=== PATIENT | male | born 1980 | race Caucasian/White ===

== ENCOUNTER 2022-08-18 10:01 | Emergency (ER) | payer BC, SELFPAY ==
--- NOTE | 2022-08-18 10:02 | ED.URI ---
HPI - URI/Sore Throat General Chief Complaint: Upper Respiratory Infection Stated Complaint: Sore Throat Time Seen by Provider: 08/18/22 10:02 Source: patient Mode of arrival: ambulatory Limitations: no limitations History of Present Illness HPI Narrative: Aden is a 42-year-old male patient presenting to clinic today with complaints of sore throat, sinus congestion, headache, green nasal drainage, He reports symptoms have been going on for over 1 week. He denies any known fever or chills. MD elicited complaint: sore throat and nasal congestion Related Data Home Medications Medication Instructions Recorded Confirmed venlafaxine 75 mg capsule,extended 75 mg PO DAILY 08/18/22 08/18/22 release 24 hr Allergies Allergy/AdvReac Type Severity Reaction Status Date / Time amoxicillin [From Augmentin] Allergy Rash Verified 08/18/22 10:13 clavulanic acid Allergy Rash Verified 08/18/22 10:13 [From Augmentin] Review of Systems Review of Systems: Pertinent positives per HPI. Patient denies any fever, chills, rash, headache, visual changes, dizziness, shortness of breath, chest pain, palpitations, nausea, vomiting, diarrhea, constipation, abdominal pain, or any urinary issues. PMFSH Comments At the time of my signature, I reviewed and agree with the nursing past medical, surgical, social, and family history. There is no relevant family history pertinent to the patient complaint. Exam Narrative: General: Well-developed, well nourished, in no apparent distress Head: Normocephalic, atraumatic Eyes: Pupils equally round and reactive to light bilaterally, EOM intact, sclera and conjunctive clear, no discharge, lids normal Ears: TMs intact and clear, ear canals clear, no drainage, grossly hearing normal. Nose: Nares patent, green nasal discharge, moderate to severe inflammation, ethmoid and maxillary sinus tenderness. Mouth: Oral pharynx without lesions or masses, good dentition, MMM. oropharynx red with tonsillar swelling Neck: Supple, trachea midline, mild enlargement of anterior cervical nodes, no thyroid masses or goiter palpable. Cardio: Regular rate and rhythm, s1 and s2 normal, no murmur appreciated. Resp: Clear to auscultation bilaterally, no rhonchi, rales, wheezing or rubs Course Course Emergency Course: Portions of this record may have been created with voice recognition software. Level of Care: Express Care Visit Vital Signs Vital signs: Vital Signs Temperature 36.8 C 08/18/22 10:07 Pulse Rate 84 08/18/22 10:07 Respiratory Rate 16 08/18/22 10:07 Blood Pressure 141/87 H 08/18/22 10:07 Pulse Oximetry 99 08/18/22 10:07 Oxygen Delivery Room Air 08/18/22 10:07 Temperature 36.8 C 08/18/22 10:07 Pulse Rate 84 08/18/22 10:07 Respiratory Rate 16 08/18/22 10:07 Blood Pressure 141/87 H 08/18/22 10:07 Pulse Oximetry 99 08/18/22 10:07 Oxygen Delivery Room Air 08/18/22 10:07 Vital signs reviewed MDM - URI/Sore Throat MDM Narrative Medical decision making narrative: At the time of visit patient is resting comfortably on the exam table. Patient has had a rash/ itching from Augmentin approximately 20 years ago. Discussed potential risk of allergy to cefdinir and patient was briefed on this and he voiced understanding and agrees to the treatment plan. Will place him on cefdinir prednisone. Supportive measures were discussed with the patient and he voiced understanding of discharge instructions and agrees to treatment plan. Differential Diagnosis Differential diagnosis: Likely upper respiratory infection, otitis media, sinusitis, viral infection, bronchitis, influenza, pharyngitis and other ( COVID) Discharge Plan Discharge Clinical Impression: Acute bacterial rhinosinusitis, Pharyngitis Patient Disposition: Home, Self-Care Condition: Stable Instructions: Antibiotic Form, Pharyngitis (ED), Rhinosinusitis (ED) Additional Instructions: Take prescr
[2022-08-18 10:07] VITALS: BP 141/87; PULSE 84; RESP 16; TEMP 36.8; O2SAT 99
== END 2022-08-18 10:24 | disposition home or self-care (01) ==
LOC: EXPBETH 10:05
PROVIDERS: Emergency Provider Nurse Practitioner Family; PCP Family Medicine
DX: J01.90 Acute sinusitis, unspecified (principal); J02.9 Acute pharyngitis, unspecified; K21.9 Gastro-esophageal reflux disease without esophagitis
CPT/HCPCS: 99213; G0463

== ENCOUNTER 2022-08-24 12:20 | Emergency (ER) | payer BC, SELFPAY ==
--- NOTE | 2022-08-24 12:23 | ED.URI ---
HPI - URI/Sore Throat General Chief Complaint: Upper Respiratory Infection Stated Complaint: sore throat Time Seen by Provider: 08/24/22 12:23 Source: patient and RN notes reviewed History of Present Illness HPI Narrative: patient is a 42-year-old male who presents to urgent care with complaints of continual sore throat and postnasal drainage. Patient was seen on August 18 and given cefdinir and prednisone at our facility. Patient states the sinus pressure has relieved with a sore throat postnasal drainage is still present. Patient completed the steroid and is still taking the cefdinir. He has not taken anything [id number] for his symptoms. No other acute complaints. No acute distress noted. Patient aware of the plan of care. Some parts of this dictation were generated by voice recognition software and may contain typographical and/or grammatical inaccuracies. Related Data Home Medications Medication Instructions Recorded Confirmed venlafaxine 75 mg capsule,extended 75 mg PO DAILY 08/18/22 08/18/22 release 24 hr Allergies Allergy/AdvReac Type Severity Reaction Status Date / Time amoxicillin [From Augmentin] Allergy Rash Verified 08/18/22 10:13 clavulanic acid Allergy Rash Verified 08/18/22 10:13 [From Augmentin] Review of Systems Review of Systems: CONSTITUTIONAL: Denies fever, chills, or sweats. EYES: Denies visual changes, redness, or discharge. ENT: Reports of sore throat postnasal drainage CARDIOVASCULAR: Denies chest pain, palpitations, or edema. RESPIRATORY: Denies cough or dyspnea. GASTROINTESTINAL: Denies abdominal pain, nausea, vomiting, or diarrhea. GENITOURINARY: Denies dysuria or hematuria. SKIN: Denies rash or itching. MUSCULOSKELETAL: Denies back pain, joint pain, or myalgia. NEUROLOGIC: Denies headache, numbness, or weakness. All other systems reviewed are negative, except as documented in HPI. PMFSH Comments At the time of my signature, I reviewed and agree with the nursing past medical, surgical, social, and family history. There is no relevant family history pertinent to the patient complaint. Exam Narrative: GENERAL: This is a well-nourished, well-developed patient, in no apparent distress. HEAD: normocephalic, atraumatic. EYES: PERRL. Sclera clear/white. Vision is grossly intact. EARS: External ears normal, auditory canals clear and without drainage, TMs normal without perforation. Hearing grossly intact. NOSE: External nose normal with no obvious nasal discharge, nares without redness, no rhinorrhea. THROAT: Mucous membranes moist, posterior pharynx clear. moderate postnasal drainage NECK: Neck supple CARDIOVASCULAR: Regular rate and rhythm without murmurs, gallops, or rubs. RESPIRATORY: Clear to auscultation. Breath sounds equal bilaterally. No wheezes, rales, or rhonchi. SKIN: warm, intact with no suspicious lesions or rash, good texture and turgor. NEURO: awake, alert, and oriented to person, place and time. There were no obvious focal neurologic abnormalities. EXTREMITIES: No clubbing, cyanosis, or edema. Course Course Level of Care: Express Care Visit Vital Signs Vital signs: Vital Signs Temperature 97.7 F 08/24/22 12:24 Pulse Rate 83 08/24/22 12:24 Respiratory Rate 20 08/24/22 12:24 Blood Pressure 157/76 H 08/24/22 12:24 Pulse Oximetry 100 08/24/22 12:24 Oxygen Delivery Room Air 08/24/22 12:24 Temperature 97.7 F 08/24/22 12:24 Pulse Rate 83 08/24/22 12:24 Respiratory Rate 20 08/24/22 12:24 Blood Pressure 157/76 H 08/24/22 12:24 Pulse Oximetry 100 08/24/22 12:24 Oxygen Delivery Room Air 08/24/22 12:24 reviewed- Patient is informed that they may have pre-hypertension or hypertension based on a blood pressure reading in the department. I recommend the patient call the primary care provider listed on their discharge instructions or a physician of their choice this week to arrange follow-up for further evalu
[2022-08-24 12:24] VITALS: BP 157/76; PULSE 83; RESP 20; TEMP 36.5; O2SAT 100
== END 2022-08-24 12:48 | disposition home or self-care (01) ==
PROVIDERS: Emergency Provider Nurse Practitioner Family; PCP Family Medicine
DX: J06.9 Acute upper respiratory infection, unspecified (principal)
CPT/HCPCS: 99211; G0463